=== PATIENT | male | born 1990 | race Caucasian/White ===

== ENCOUNTER 2024-12-17 19:32 | Emergency (ER) | payer SELFPAY | END 2024-12-17 22:00 | disposition home or self-care (01) | LOC: JD.ED 19:32 | DX: S02.2XXA Fracture of nasal bones, initial encounter for closed fracture (principal); M79.671 Pain in right foot; W01.198A Fall on same level from slipping, tripping and stumbling with subsequent striking against other object, initial encounter | CPT/HCPCS: 70160; 73590; 73630; 99283; A9270 ==